=== PATIENT | female | born 1935 | race African-American/Black ===

== ENCOUNTER 2019-03-30 23:17 | Emergency (ER) | payer MEDICARE, MEDICAID ==
[~2019-03-30] VITALS: Ht 157.5 cm; Wt 69.0 kg
[~2019-03-30 23:17] MED LIST: ASPI-986 PO; METF-415 PO
[2019-03-31] MEDS ORDERED: ACETAMINOPHEN 500MG TABLET PO ONE (00:15)
[2019-03-31 01:14] VITALS: BP 178/82
== END 2019-03-31 01:16 | disposition home or self-care (01) ==
LOC: ER 23:17
DX: S06.0X0A Concussion without loss of consciousness, initial encounter (principal); I10 Essential (primary) hypertension; E78.00 Pure hypercholesterolemia, unspecified; E11.9 Type 2 diabetes mellitus without complications; H26.9 Unspecified cataract; Z98.890 Other specified postprocedural states; Z79.82 Long term (current) use of aspirin; Z90.710 Acquired absence of both cervix and uterus; Z79.84 Long term (current) use of oral hypoglycemic drugs; W22.01XA Walked into wall, initial encounter; Y93.89 Activity, other specified; Y92.018 Other place in single-family (private) house as the place of occurrence of the external cause
CPT/HCPCS: 99284